=== PATIENT | female | born 1990 | race Caucasian/White ===

== ENCOUNTER 2023-06-06 07:30 | Outpatient (CLI) | payer OTHER, SELFPAY | END 2023-06-06 07:31 | disposition home or self-care (01) | LOC: NFLDREF 14:27 | PROVIDERS: Visit Provider Physician Assistant | DX: Z01.419 Encounter for gynecological examination (general) (routine) without abnormal findings (principal); E03.9 Hypothyroidism, unspecified; Z13.1 Encounter for screening for diabetes mellitus; Z13.6 Encounter for screening for cardiovascular disorders | CPT/HCPCS: 80061; 82947; 84443 ==

== ENCOUNTER 2024-06-01 17:39 | Outpatient (CLI) | payer OTHER, SELFPAY | END 2024-06-01 17:40 | disposition home or self-care (01) | PROVIDERS: Visit Provider Physician Assistant | DX: Z01.419 Encounter for gynecological examination (general) (routine) without abnormal findings (principal); E03.9 Hypothyroidism, unspecified; Z12.4 Encounter for screening for malignant neoplasm of cervix | CPT/HCPCS: 84439; 84443 ==

== ENCOUNTER 2024-09-06 07:47 | Outpatient (CLI) | payer OTHER, SELFPAY | END 2024-09-06 07:48 | disposition home or self-care (01) | LOC: NFLDREF 09-07 13:58 | PROVIDERS: Visit Provider Physician Assistant | DX: E03.9 Hypothyroidism, unspecified (principal) | CPT/HCPCS: 84443 ==

== ENCOUNTER 2025-06-06 13:04 | Outpatient (CLI) | payer OTHER, SELFPAY | END 2025-06-06 13:05 | disposition home or self-care (01) | LOC: NFLDREF 13:04 | PROVIDERS: Visit Provider Physician Assistant | DX: E03.9 Hypothyroidism, unspecified (principal) | CPT/HCPCS: 84439; 84443 ==